=== PATIENT | female | born 1945 | race Caucasian/White ===

== ENCOUNTER → 2016-08-04 | Outpatient (CLI) | payer MEDICARE, BC ==
[~2016-08-04] MED LIST: CEPH500C3 PO; NAPR550 PO
[2016-08-04 13:06] LABS: HEMATOCRIT 39.4 % (35.0-46.0); MEAN CELL VOLUME 68.2 FL (80.0-100.0); MEAN CORPUSCULAR HGB CONC 32.3 % (32.0-36.0); PLATELET COUNT 233 TH/MM3 (150-450); RED BLOOD COUNT 5.78 MIL/MM3 (4.00-5.30); RED CELL DISTRIBUTION WIDTH 18.3 % (11.6-17.2); WHITE BLOOD COUNT 4.9 TH/MM3 (4.0-11.0)
[2016-08-04 13:10] LABS: REVIEW FLAG FINAL
[2016-08-04 13:39] LABS: ALKALINE PHOSPHATASE 73 U/L (45-117); ALT (GPT) 23 U/L (10-53); ANION GAP 8 MEQ/L (5-15); AST (GOT) 21 U/L (15-37); BLOOD UREA NITROGEN 17 MG/DL (7-18); CHLORIDE 104 MEQ/L (98-107); FREE T4 0.96 NG/DL (0.76-1.46); GLOMERULAR FILTRATION RATE 63 ML/MIN (>89); GLUCOSE,FASTING 100 MG/DL (74-99); HDL CHOLESTEROL 57.2 MG/DL (40.0-60.0); LDL CHOLESTEROL 85 MG/DL (0-99); LDL CHOLESTEROL DIRECT 97 MG/DL (0-99); POTASSIUM 3.7 MEQ/L (3.5-5.1); SODIUM (NA) 141 MEQ/L (136-145); TOTAL BILIRUBIN ADULT 0.4 MG/DL (0.2-1.0)
== END ==
LOC: PLAB 08:16
PROVIDERS: ATTEND Family Medicine
DX: I25.10 Atherosclerotic heart disease of native coronary artery without angina pectoris (principal); E78.2 Mixed hyperlipidemia; E03.8 Other specified hypothyroidism; I10 Essential (primary) hypertension
CPT/HCPCS: 36415; 80053; 80061; 83721; 84439; 84443; 85027

== ENCOUNTER → 2016-11-03 | Outpatient (CLI) | payer MEDICARE, BC ==
[2016-11-03 13:06] LABS: HEMATOCRIT 39.5 % (35.0-46.0); MEAN CELL VOLUME 68.4 FL (80.0-100.0); MEAN CORPUSCULAR HEMOGLOBIN 22.1 PG (27.0-34.0); MEAN CORPUSCULAR HGB CONC 32.3 % (32.0-36.0); PLATELET COUNT 229 TH/MM3 (150-450); RED BLOOD COUNT 5.77 MIL/MM3 (4.00-5.30); RED CELL DISTRIBUTION WIDTH 18.4 % (11.6-17.2); WHITE BLOOD COUNT 5.7 TH/MM3 (4.0-11.0)
[2016-11-03 13:07] LABS: REVIEW FLAG FINAL
[2016-11-03 13:21] LABS: ANION GAP 9 MEQ/L (5-15); AST (GOT) 22 U/L (15-37); BLOOD UREA NITROGEN 17 MG/DL (7-18); CHLORIDE 101 MEQ/L (98-107); GLOMERULAR FILTRATION RATE 64 ML/MIN (>89); GLUCOSE,FASTING 88 MG/DL (74-99); POTASSIUM 3.9 MEQ/L (3.5-5.1); SODIUM (NA) 138 MEQ/L (136-145)
[2016-11-03 13:30] LABS: ALKALINE PHOSPHATASE 71 U/L (45-117); ALT (GPT) 24 U/L (10-53); FREE T4 0.96 NG/DL (0.76-1.46); LDL CHOLESTEROL 83 MG/DL (0-99); LDL CHOLESTEROL DIRECT 85 MG/DL (0-99); TOTAL BILIRUBIN ADULT 0.5 MG/DL (0.2-1.0)
== END ==
LOC: PLAB 10:25
PROVIDERS: ATTEND Family Medicine
DX: I25.10 Atherosclerotic heart disease of native coronary artery without angina pectoris (principal); E78.2 Mixed hyperlipidemia; I10 Essential (primary) hypertension; E03.8 Other specified hypothyroidism
CPT/HCPCS: 36415; 80053; 80061; 83721; 84439; 84443; 85027

== ENCOUNTER → 2017-01-26 | Outpatient (CLI) | payer MEDICARE, BC | LOC: PLAB 08:17 | PROVIDERS: ATTEND Internal Medicine Cardiovascular Disease | DX: I34.0 Nonrheumatic mitral (valve) insufficiency (principal); I10 Essential (primary) hypertension; I51.7 Cardiomegaly | CPT/HCPCS: 36415; 83880 ==

== ENCOUNTER → 2017-02-16 | Outpatient (CLI) | payer MEDICARE, BC ==
[2017-02-16 11:22] LABS: HEMATOCRIT 37.3 % (35.0-46.0); MEAN CELL VOLUME 68.9 FL (80.0-100.0); MEAN CORPUSCULAR HEMOGLOBIN 21.9 PG (27.0-34.0); MEAN CORPUSCULAR HGB CONC 31.7 % (32.0-36.0); PLATELET COUNT 241 TH/MM3 (150-450); RED BLOOD COUNT 5.42 MIL/MM3 (4.00-5.30); RED CELL DISTRIBUTION WIDTH 18.7 % (11.6-17.2); REVIEW FLAG FINAL; WHITE BLOOD COUNT 5.7 TH/MM3 (4.0-11.0)
[2017-02-16 11:40] LABS: RHEUMATOID FACTOR TRIGGER LESS THAN 10.0 IU/ML (0.0-14.9)
[2017-02-16 11:41] LABS: ANION GAP 9 MEQ/L (5-15); AST (GOT) 24 U/L (15-37); BICARBONATE 27.3 MEQ/L (21.0-32.0); BLOOD UREA NITROGEN 21 MG/DL (7-18); CHLORIDE 100 MEQ/L (98-107); GLOMERULAR FILTRATION RATE 69 ML/MIN (>89); GLUCOSE,FASTING 99 MG/DL (74-99); POTASSIUM 3.5 MEQ/L (3.5-5.1); SODIUM (NA) 136 MEQ/L (136-145)
[2017-02-16 11:42] LABS: URIC ACID 5.1 MG/DL (2.6-6.0)
[2017-02-16 11:44] LABS: CREATINE KINASE 113 U/L (26-192)
[2017-02-16 11:51] LABS: ALKALINE PHOSPHATASE 59 U/L (45-117); ALT (GPT) 21 U/L (10-53); FREE T4 0.99 NG/DL (0.76-1.46); HDL CHOLESTEROL 44.7 MG/DL (40.0-60.0); LDL CHOLESTEROL 88 MG/DL (0-99); LDL CHOLESTEROL DIRECT 90 MG/DL (0-99); TOTAL BILIRUBIN ADULT 0.4 MG/DL (0.2-1.0)
[2017-02-16 13:11] LABS: WESTERGREN SEDIMENTATION RATE 12 mm/hr (0-30)
[2017-02-18 13:11] LABS: ANA SCREEN POS (NEG)
== END ==
LOC: PLAB 08:13
DX: I25.10 Atherosclerotic heart disease of native coronary artery without angina pectoris (principal); E78.2 Mixed hyperlipidemia; I10 Essential (primary) hypertension; E03.8 Other specified hypothyroidism; R53.82 Chronic fatigue, unspecified; N17.0 Acute kidney failure with tubular necrosis; Z79.899 Other long term (current) drug therapy; L40.50 Arthropathic psoriasis, unspecified
CPT/HCPCS: 36415; 80053; 80061; 82306; 82550; 83721; 84439; 84443; 84550; 85027; 85652; 86038; 86039; 86140; 86147; 86200; 86430; 86803; 87340

== ENCOUNTER → 2017-03-17 | Outpatient (CLI) | payer MEDICARE, BC ==
[2017-03-17 15:58] LABS: FERRITIN 35 NG/ML (8-252); TRANSFERRIN IRON PROFILE 255 MG/DL (200-360)
== END ==
LOC: PLAB 12:26
PROVIDERS: ATTEND Internal Medicine Gastroenterology
DX: K21.9 Gastro-esophageal reflux disease without esophagitis (principal); K44.9 Diaphragmatic hernia without obstruction or gangrene; E61.1 Iron deficiency; Z12.11 Encounter for screening for malignant neoplasm of colon
CPT/HCPCS: 36415; 82728; 83540; 83550

== ENCOUNTER → 2017-05-14 | Outpatient (CLI) | payer MEDICARE, BC ==
[2017-05-14 13:32] LABS: ANION GAP 8 MEQ/L (5-15); AST (GOT) 25 U/L (15-37); BICARBONATE 27.8 MEQ/L (21.0-32.0); BLOOD UREA NITROGEN 15 MG/DL (7-18); CHLORIDE 101 MEQ/L (98-107); GLOMERULAR FILTRATION RATE 71 ML/MIN (>89); GLUCOSE,FASTING 103 MG/DL (74-99); POTASSIUM 3.8 MEQ/L (3.5-5.1); SODIUM (NA) 137 MEQ/L (136-145)
[2017-05-14 13:43] LABS: ALKALINE PHOSPHATASE 66 U/L (45-117); ALT (GPT) 24 U/L (10-53); FREE T4 1.12 NG/DL (0.76-1.46); HDL CHOLESTEROL 50.6 MG/DL (40.0-60.0); LDL CHOLESTEROL 66 MG/DL (0-99); LDL CHOLESTEROL DIRECT 83 MG/DL (0-99); TOTAL BILIRUBIN ADULT 0.6 MG/DL (0.2-1.0)
[2017-05-14 16:17] LABS: HEMOGLOBIN A1a 1.7 %; HEMOGLOBIN Ao 81.8 %; HEMOGLOBIN LA1C 2.1 %; HEMOGLOBIN P3 5.5 %
== END ==
LOC: PLAB 08:47
PROVIDERS: ATTEND Family Medicine
DX: I25.10 Atherosclerotic heart disease of native coronary artery without angina pectoris (principal); E78.2 Mixed hyperlipidemia; I10 Essential (primary) hypertension; E03.8 Other specified hypothyroidism; R73.01 Impaired fasting glucose
CPT/HCPCS: 36415; 80053; 80061; 83036; 83721; 84439; 84443

== ENCOUNTER → 2017-08-17 | Outpatient (CLI) | payer MEDICARE, BC ==
[2017-08-17 12:04] LABS: HEMATOCRIT 37.6 % (35.0-46.0); HEMOGLOBIN 12.2 GM/DL (11.6-15.3); MEAN CELL VOLUME 69.7 FL (80.0-100.0); MEAN CORPUSCULAR HEMOGLOBIN 22.7 PG (27.0-34.0); MEAN CORPUSCULAR HGB CONC 32.5 % (32.0-36.0); PLATELET COUNT 234 TH/MM3 (150-450); RED CELL DISTRIBUTION WIDTH 17.5 % (11.6-17.2)
[2017-08-17 12:16] LABS: ALBUMIN 3.5 GM/DL (3.4-5.0); BICARBONATE 26.9 MEQ/L (21.0-32.0); BLOOD UREA NITROGEN 16 MG/DL (7-18); CALCIUM 9.1 MG/DL (8.5-10.1); CHLORIDE 100 MEQ/L (98-107); GLUCOSE,FASTING 100 MG/DL (74-99); SODIUM (NA) 136 MEQ/L (136-145)
[2017-08-17 12:29] LABS: ALKALINE PHOSPHATASE 61 U/L (45-117); ALT (GPT) 22 U/L (10-53); AST (GOT) 22 U/L (15-37); CHOLESTEROL 136 MG/DL (120-200); CHOLESTEROL/ HDL RATIO 2.94 RATIO; CREATININE 0.82 MG/DL (0.50-1.00); FREE T4 1.05 NG/DL (0.76-1.46); GLOMERULAR FILTRATION RATE 68 ML/MIN (>89); HDL CHOLESTEROL 46.2 MG/DL (40.0-60.0); LDL CHOLESTEROL 67 MG/DL (0-99); LDL CHOLESTEROL DIRECT 80 MG/DL (0-99); TOTAL BILIRUBIN ADULT 0.5 MG/DL (0.2-1.0); TOTAL PROTEIN 7.2 GM/DL (6.4-8.2); TRIGLYCERIDES 116 MG/DL (42-150)
[2017-08-17 17:10] LABS: HEMOGLOBIN A1C 5.9 % (4.3-6.0)
== END ==
LOC: PLAB 08:47
PROVIDERS: ATTEND Family Medicine
DX: I25.10 Atherosclerotic heart disease of native coronary artery without angina pectoris (principal); E78.2 Mixed hyperlipidemia; I10 Essential (primary) hypertension; E03.8 Other specified hypothyroidism; R73.01 Impaired fasting glucose
CPT/HCPCS: 36415; 80053; 80061; 83036; 83721; 84439; 84443; 85027

== ENCOUNTER 2017-10-06 17:23 | Emergency (ER) | payer MEDICARE, BC ==
[~2017-10-06] VITALS: Ht 167.6 cm; Wt 73.0 kg
[2017-10-06 17:24] VITALS: BP 167/79; PULSE 71; RESP 18; TEMP 98.9; O2SAT 100
[2017-10-06] MEDS ORDERED: ACETAMINOPHEN/HYDROcodone 325 MG/5 MG TAB PO ONE (18:00)
[2017-10-06] MEDS ORDERED: MULTTAB67 PO (18:02)
[2017-10-06] MEDS ORDERED: DEXI60CA3 PO (18:02)
[2017-10-06] MEDS ORDERED: GLUC15009 PO (18:02)
[2017-10-06] MEDS ORDERED: RANI300T PO (18:02)
[2017-10-06] MEDS ORDERED: LEVO75TA3 PO (18:02)
[2017-10-06] MEDS ORDERED: FISH1200 PO (18:02)
[2017-10-06] MEDS ORDERED: ATOR80TA45 PO (18:02)
[2017-10-06] MEDS ORDERED: ASPI81CH6 CHEW (18:02)
[2017-10-06] MEDS ORDERED: CELE200C PO (18:02)
[2017-10-06] MEDS ORDERED: CALC500T37 PO (18:02)
[2017-10-06] MEDS ORDERED: ELMI100C PO (18:02)
[2017-10-06] MEDS ORDERED: PLAV75TA29 PO (18:02)
[2017-10-06] MEDS ORDERED: AMLO5TAB2 PO (18:02)
[2017-10-06] MEDS ORDERED: MELO15TA20 PO (18:03)
[2017-10-06] MEDS ORDERED: FOLI400T PO (18:03)
--- NOTE | 2017-10-06 18:34 | RADRPT ---
EXAM DATE/TIME: 10/06/2017 18:07 [facility] COMPARISON: No previous studies available for comparison. INDICATIONS : Right hip pain. No known injury. MEDICAL HISTORY : None. SURGICAL HISTORY : None. ENCOUNTER: Initial ACUITY: 1 day PAIN SCORE: 8/10 LOCATION: Right hip. FINDINGS: Examination of the right hip was performed with AP Pelvis. The primary and secondary trabecular hari adriana of the femoral neck is intact. The hip joint is of normal width without significant sclerosis or bony hypertrophy. The acetabulum is grossly intact. There is mild osteopenia. CONCLUSION: There is mild osteopenia with no evidence of fracture underlying bony abnormality. Anshul Pires MD on October 06, 2017 at 18:31 Board Certified Radiologist. This report was verified electronically.
--- NOTE | 2017-10-06 18:36 | RADRPT ---
EXAM DATE/TIME: 10/06/2017 18:07 [facility] COMPARISON: No previous studies available for comparison. INDICATIONS : Right knee pain. No known injury. MEDICAL HISTORY : None. SURGICAL HISTORY : None. ENCOUNTER: Initial ACUITY: 2 weeks PAIN SCORE: 8/10 LOCATION: Right knee. FINDINGS: Scanner for the examination of the right knee was obtained and demonstrates 3 compartment degenerativ e change joint space loss, sclerosis and mild hypertrophic changes. There is fullness in the suprapat ellar bursa region consistent with a joint effusion. There is diffuse osteopenia with no acute fractu re or malalignment. There is mild anterior soft tissue prominence. CONCLUSION: Mild to moderate 3 compartment osteoarthritic change with evidence of joint effusion. Anshul Pires MD on October 06, 2017 at 18:31 Board Certified Radiologist. This report was verified electronically.
--- NOTE | 2017-10-06 19:28 | PD ---
HPI Chief Complaint: Pain: Acute or Chronic Time Seen by Provider: 17:36 Travel History International Travel<30 days: No Contact w/Intl Traveler<30days: No Traveled to known affect area: No History of Present Illness HPI 72-year-old female presents emergency department for evaluation of right hip and knee pain that is increasing over the last 2 weeks. Patient states that she has been kneeling more frequently while working in the garden and believes this may be the result of her pain. Says she has been using Celebrex but states this is not reduced her pain enough. Patient says she is losing her balance because of the knee pain. She denies any dizziness or falls however. Says she took 800 mg ibuprofen today [id number] for her pain. Says her knee pain is aching, mild to moderate in severity, worse with kneeling and weight bearing. she believes her knee is swollen. Her hip pain is located 'deep ' and radiates to the knee. Worse with walking and weight bearing. Says she has a history of knee joint injections with an orthopedics physician however, she has not followed up with them in some time. Says she had x-rays approximately 1 year ago of her knees. Says she has not followed up with a primary care physician regarding this concern. She denies any numbness tingling. Denies any back pain. She denies any weakness. PFSH Past Medical History Arthritis: Yes High Cholesterol: Yes Cerebrovascular Accident: Yes (TIA) Diminished Hearing: No GERD: Yes Hypertension: Yes Immunizations Current: No Thyroid Disease: Yes (hypo ) Tetanus Vaccination: Unknown Influenza Vaccination: Yes ?: Not Past Surgical History Cholecystectomy: Yes (2006) Tonsillectomy: Yes (1967 & 1973) Other Surgery: Yes (BIOPSY) Social History Alcohol Use: No Tobacco Use: No Substance Use: No Allergies-Medications (Allergen,Severity, Reaction): Coded Allergies: doxycycline (Unverified Allergy, Severe, HIVES, 10/06/17) minocycline (Unverified Allergy, Severe, HIVES, 10/06/17) tigecycline (Unverified Allergy, Severe, HIVES, 10/06/17) Reported Meds & Prescriptions Reported Meds & Active Scripts Active Walker/Adult/Folding (Device) 1 Mis Mis Ea .XX DIRECTED Prednisone 10 Mg Tab 10 Mg PO DAILY 5 Days Reported Folic Acid 0.4 Mg Tab 1 Mg PO DAILY Meloxicam 15 Mg Tab 15 Mg PO DAILY Calcium Ascorbate 500 Mg Tab 500 Mg PO DAILY Multiple Vitamin 1 Tab 1 Tab PO DAILY Glucosamine 1,500 Mg Tab 1,500 Mg PO BID Fish Oil 1200 mg (Elbert-3 Fatty Acids) 360 Mg-1,200 Mg Cap 1 Tab PO DAILY Plavix (Clopidogrel Bisulfate) 75 Mg Tab 75 Mg PO DAILY Atorvastatin (Atorvastatin Calcium) 80 Mg Tab 80 Mg PO HS Ranitidine (Ranitidine HCl) 300 Mg Tab 300 Mg PO DAILY Elmiron (Pentosan Polysulfate Sodium) 100 Mg Cap 100 Mg PO DIRECTED Aspirin Low Dose (Aspirin) 81 Mg Chew 81 Mg CHEW DAILY Celebrex (Celecoxib) 200 Mg Cap 200 Mg PO DAILY Dexilant (Dexlansoprazole) 60 Mg Cap.dr.bp 1 Tab PO DAILY Amlodipine (Amlodipine Besylate) 5 Mg Tab 5 Mg PO DAILY Levothyroxine (Levothyroxine Sodium) 75 Mcg Tab 75 Mcg PO DAILY Review of Systems Except as stated in HPI: all other systems reviewed are Neg Physical Exam Narrative GENERAL: Well-nourished, well-developed patient. SKIN: Focused skin assessment warm/dry. HEAD: Normocephalic. EYES: No scleral icterus. No injection or drainage. NECK: Supple, trachea midline. No JVD or lymphadenopathy. CARDIOVASCULAR: Regular rate and rhythm without murmurs, gallops, or rubs. RESPIRATORY: Breath sounds equal bilaterally. No accessory muscle use. MUSCULOSKELETAL: No cyanosis, or edema. Left lower extremity-foramen range of motion of knee, no tenderness palpation, no edema or erythema present. Negative varus, negative valgus, negative Apley's Right lower extremity-limited range of motion of the knee secondary to pain, slight edema to the knee without erythema. No obvious trauma to the knee. Negative varus, negative valgus, negative Apley's. Right hip-no tenderness palpation. No obvious trauma. BACK: Nontender without obvious deformity. No CVA tenderness. Data Data Last Documented VS Vital Signs Date Time Temp Pulse Resp B/P (MAP) Pulse Ox O2 Delivery O2 Flow Rate FiO2 10/06/17 17:24 98.9 71 18 167/79 (108) 100 Orders Orders Hip, Uni(Ap&Lat) W Ap Pelvis (10/06/17 ) Knee, Complete (4vws) (10/06/17 ) Acetamin-Hydrocod 325-5 Mg ([place] 5-325 (10/06/17 18:00) Ed Discharge Order (10/06/17 19:28) Support Splint (10/06/17 20:13) [facility] Medical Decision Making Medical Screen Exam Complete: Yes Emergency Medical Condition: Yes Differential Diagnosis Left knee pain, arthritis, fracture, hip contusion Narrative Course 72-year-old female presents emergency department for evaluation of right hip and knee pain that is increasing over the last 2 weeks. Patient states that she has been kneeling more frequently while working in the garden and believes this may be the result of her pain. Says she has been using Celebrex but states this is not reduced her pain enough. Patient says she is losing her balance because of the knee pain. She denies any dizziness or falls however. Says she took 800 mg ibuprofen today [id number] for her pain. Says her knee pain is aching, mild to moderate in severity, worse with kneeling and weight bearing. she believes her knee is swollen. Her hip pain is located 'deep ' and radiates to the knee. Worse with walking and weight bearing. Says she has a history of knee joint injections with an orthopedics physician however, she has not followed up with them in some time. Says she had x-rays approximately 1 year ago of her knees. Says she has not followed up with a primary care physician regarding this concern. She denies any numbness tingling. Denies any back pain. She denies any weakness. Vital signs stable. Physical exam findings reveal mild tender to palpation of the right hip joint, right knee. Effusion noted of the right knee when compared to the left. No obvious trauma to the hip or knee. I offered hydrocodone for pain relief on the emergency department. Gabriele wrap to the right knee. Advised the patient should use a walker to avoid falls. Prescription for walker. Because of the nature of her chronic joint pains and arthritis, offered prednisone. Advised that this may increase her risk of fractures. Strong advised patient use caution and follow-up with her primary care physician as soon as possible. She states understanding will comply. She may use 1 of her NSAIDs only. Patient mentions possible use of multiple anti-inflammatories at one time. Advised this may cause gastritis or kidney dysfunction. She will follow-up with a primary care physician and orthopedic physician. Return to emergency room for worsening or persistent symptoms. Diagnosis Primary Impression: Knee osteoarthritis Qualified Codes: M17.11 - Unilateral primary osteoarthritis, right knee Additional Impressions: Knee effusion Qualified Codes: M25.461 - Effusion, right knee Osteoarthritis Qualified Codes: M16.11 - Unilateral primary osteoarthritis, right hip Referrals: Orthopedist Additional Instructions: Follow-up with the orthopedic physician regarding her hip and knee pain. You may use Gabriele wraps to reduce swelling of her knee. Continue your anti-inflammatories but ensure that you stay with them package instructions. Use the walker for ambulating to avoid further injury. Use caution with prednisone as it may increase your risk for fractures. Elevate and ice your knee daily. Follow up with your primary care physician as soon as possible. Scripts Walker/Adult/Folding (Walker/Adult/Folding) 1 Mis Mis EA .XX DIRECTED, #1 0 Refills Prov: Zacarias Kwok MD 10/06/17 Prednisone (Prednisone) 10 Mg Tab 10 MG PO DAILY for 5 Days, #5 TAB 0 Refills Prov: Zacarias Kwok MD 10/06/17 Disposition: 01 DISCHARGE HOME Condition: Stable Radha Flaherty Oct 06, 2017 19:28
[2017-10-06] MEDS ORDERED: PRED10 PO (20:12)
[2017-10-06] MEDS ORDERED: WALKER/ADULT/FO1 MIS (20:12)
== END 2017-10-06 20:24 | disposition home or self-care (01) ==
LOC: PHEFT 17:23
DX: M17.11 Unilateral primary osteoarthritis, right knee (principal); M16.11 Unilateral primary osteoarthritis, right hip; M25.461 Effusion, right knee; M25.551 Pain in right hip; E78.00 Pure hypercholesterolemia, unspecified; K21.9 Gastro-esophageal reflux disease without esophagitis; I10 Essential (primary) hypertension; E03.9 Hypothyroidism, unspecified
CPT/HCPCS: 73502; 73564; 99283

== ENCOUNTER → 2017-10-29 | Outpatient (CLI) | payer MEDICARE, BC ==
[~2017-10-29] MED LIST changes: +AMLO5TAB2 PO; +ASPI81CH6 CHEW; +ATOR80TA45 PO; +CALC500T37 PO; +CELE200C PO; -CEPH500C3 PO; +DEXI60CA3 PO; +ELMI100C PO; +FISH1200 PO; +FOLI400T PO; +GLUC15009 PO; +LEVO75TA3 PO; +MELO15TA20 PO; +MULTTAB67 PO; -NAPR550 PO; +PLAV75TA29 PO; +PRED10 PO; +RANI300T PO; +WALKER/ADULT/FO1 MIS
== END ==
LOC: PLAB 12:55
PROVIDERS: ATTEND Family Medicine
DX: M10.9 Gout, unspecified (principal)
CPT/HCPCS: 36415; 84550

== ENCOUNTER → 2017-11-24 | Outpatient (CLI) | payer MEDICARE, BC ==
[2017-11-24 10:20] LABS: AUTOMATED NEUTROPHIL # 2.7 TH/MM3 (1.8-7.7); BASOPHIL % 0.6 % (0.0-2.0); EOSINOPHIL # 0.1 TH/MM3 (0-0.4); EOSINOPHIL % 2.8 % (0.0-4.0); HEMATOCRIT 37.9 % (35.0-46.0); HEMOGLOBIN 12.3 GM/DL (11.6-15.3); LYMPH % 33.9 % (9.0-44.0); LYMPHOCYTE # 1.7 TH/MM3 (1.0-4.8); MEAN CELL VOLUME 70.2 FL (80.0-100.0); MEAN CORPUSCULAR HEMOGLOBIN 22.8 PG (27.0-34.0); MEAN CORPUSCULAR HGB CONC 32.5 % (32.0-36.0); MONO % 9.1 % (0.0-8.0); MONOCYTE # 0.5 TH/MM3 (0-0.9); NEUT % 53.6 % (16.0-70.0); PLATELET COUNT 246 TH/MM3 (150-450); RED CELL DISTRIBUTION WIDTH 18.3 % (11.6-17.2); WHITE BLOOD COUNT 5.1 TH/MM3 (4.0-11.0)
[2017-11-24 10:44] LABS: ALBUMIN 3.3 GM/DL (3.4-5.0); AST (GOT) 24 U/L (15-37); BICARBONATE 26.4 MEQ/L (21.0-32.0); BLOOD UREA NITROGEN 14 MG/DL (7-18); CALCIUM 8.7 MG/DL (8.5-10.1); CHLORIDE 103 MEQ/L (98-107); CHOLESTEROL 133 MG/DL (120-200); CREATININE 0.94 MG/DL (0.50-1.00); GLOMERULAR FILTRATION RATE 58 ML/MIN (>89); GLUCOSE,FASTING 100 MG/DL (74-99); SODIUM (NA) 139 MEQ/L (136-145); TRIGLYCERIDES 104 MG/DL (42-150)
[2017-11-24 10:50] LABS: ALKALINE PHOSPHATASE 67 U/L (45-117); ALT (GPT) 21 U/L (10-53); CHOLESTEROL/ HDL RATIO 2.73 RATIO; FREE T4 1.04 NG/DL (0.76-1.46); HDL CHOLESTEROL 48.6 MG/DL (40.0-60.0); LDL CHOLESTEROL 64 MG/DL (0-99); LDL CHOLESTEROL DIRECT 74 MG/DL (0-99); TOTAL BILIRUBIN ADULT 0.3 MG/DL (0.2-1.0); TOTAL PROTEIN 6.6 GM/DL (6.4-8.2)
== END ==
LOC: PLAB 08:13
PROVIDERS: ATTEND Allergy & Immunology
DX: I25.10 Atherosclerotic heart disease of native coronary artery without angina pectoris (principal); E03.8 Other specified hypothyroidism; E78.2 Mixed hyperlipidemia; I10 Essential (primary) hypertension; L40.50 Arthropathic psoriasis, unspecified
CPT/HCPCS: 36415; 80053; 80061; 83721; 84439; 84443; 85025